=== PATIENT | female | born 1945 | race Asian ===

== ENCOUNTER 2017-10-14 07:51 | Day surgery (SDC) | payer OTHER ==
[2017-10-14] MEDS ORDERED: DEXTROSE 50% 50 ML SYRINGE (08:45)
[2017-10-14] MEDS ORDERED: MIDAZOLAM 1 MG/ML 2 ML INJ (10:50)
[2017-10-14] MEDS ORDERED: FENTAnyl 50 MCG/ML VIAL (10:51)
== END 2017-10-14 13:49 | disposition home or self-care (01) ==
LOC: GIL 07:51
DX: Z12.11 Encounter for screening for malignant neoplasm of colon (principal); K64.4 Residual hemorrhoidal skin tags; K64.8 Other hemorrhoids
CPT/HCPCS: 45378; 82962

== ENCOUNTER 2018-06-01 06:32 | Day surgery (SDC) | payer OTHER ==
[2018-06-01] MEDS: SOD CHLORIDE 0.9% 1,000 ML IV (07:33)
[2018-06-01] MEDS: MOXIFLOXACIN 0.5% 3 ML OPH OPER (07:34)
[2018-06-01] MEDS: CYCLOPENTOLATE/PHENYLEPH 2 ML OPH OPER (07:34)
[2018-06-01] MEDS: DICLOFENAC 0.1% 2.5 ML OPH OPER (07:34)
[2018-06-01] MEDS: TROPICAMIDE 1% 15 ML OPH OPER (07:34)
[2018-06-01] MEDS ORDERED: ONDANSETRON 4 MG INJ IV (08:00)
[2018-06-01] MEDS ORDERED: FENTAnyl 50 MCG/ML VIAL IV (08:00)
[2018-06-01] MEDS ORDERED: NA HYALURONATE/CHONDROITIN 0.5 ML SYG (08:18)
[2018-06-01] MEDS: CARBACHOL 0.01% 1.5 ML OPH INJ (08:25)
[2018-06-01] MEDS: CEFAZOLIN 1 GM INJ (08:25)
[2018-06-01] MEDS: LIDOCAINE 4% (MPF) 5 ML INJ (08:26)
[2018-06-01] MEDS: DEXAMETHASONE 4 MG/ML 1 ML INJ (08:26)
[2018-06-01] MEDS ORDERED: PROPOFOL 20 ML (08:51)
[2018-06-01] MEDS ORDERED: LIDOCAINE 2% (SDV) 5 ML INJ (08:51)
[2018-06-01] MEDS ORDERED: hydrALAzine 20 MG INJ (09:22)
[2018-06-01] MEDS: hydrALAzine 20 MG INJ IV ×2 (09:32→09:35)
== END 2018-06-01 10:09 | disposition home or self-care (01) ==
LOC: SDS 06:32
DX: H25.011 Cortical age-related cataract, right eye (principal); I10 Essential (primary) hypertension; E11.9 Type 2 diabetes mellitus without complications; Z79.84 Long term (current) use of oral hypoglycemic drugs
CPT/HCPCS: 66984; 82962